=== PATIENT | female | born 1975 | race Caucasian/White ===

== ENCOUNTER 2022-10-05 10:00 | Emergency (ER) | payer OTHER, SELFPAY ==
[2022-10-05 10:03] VITALS: BP 120/83; PULSE 81; RESP 16; TEMP 36.3; O2SAT 100; BMI 20.1
--- NOTE | 2022-10-05 12:34 | ED.GENADULT ---
HPI - General Adult General Date Seen: 10/05/22 Chief complaint: Eye Problems Stated complaint: Facial injury/by dog Time Seen by Provider: 10/05/22 11:06 Source: patient Mode of arrival: ambulatory Limitations: no limitations History of Present Illness HPI narrative: Patient is a very nice 47-year-old female presents here for evaluation after she was bumped by her dog 3 days ago just below the right eye she woke up this morning with the swelling there, called the clinic and they recommended that she get seen she is having no problems seeing, there is no diplopia, she denies any nausea vomiting or any other signs of head injury. The dog was small and managed at [facility] also cross the know she has had a little bit of bleeding initially but none since he is able to breathe out of both sides of her nose normally. Associated symptoms: denies other symptoms Treatments prior to arrival: none Related Data Home Medications Medication Instructions Recorded Confirmed celecoxib 200 mg capsule (Celebrex) 200 mg PO BID 10/05/22 10/05/22 rituximab 10 mg/mL IV 10/05/22 concentrate,intravenous (Rituxan) Allergies Allergy/AdvReac Type Severity Reaction Status Date / Time No Known Drug Allergies Allergy Verified 10/05/22 10:07 Review of Systems Status of ROS: Reports: 10 or more systems reviewed and unremarkable except as noted in History and below [facility] Social History Smoking Status: Never smoker Do you use any of these nicotine containing products: None Second hand tobacco smoke exposure: No How often do you have a drink containing alcohol: never How often do you have six or more drinks on one occasion: Never AUDIT-C Alcohol total score: 0 Non-prescribed substance use: denies use service: No Exam Narrative: Exam Narrative: Patient is no apparent distress very pleasant, her pupils are equal round reactive to light she tracks normally with absence of nystagmus, little bit of swelling below her right eye just below her right lead overlying the maxillary bone, I cannot feel a specific area of bony soreness although I suspected underneath this is a small little hematoma. TMs are normal bilaterally, her neck is supple there is full range of motion she has a small little abrasion/very small 2 mm laceration across the bridge of her nose, when she plug her nose there is no air the comes out of air nasal bones are straight, there is no septal hematoma on viewing this her mouth opening is normal, no midfacial tenderness, her jaw tracks normally, there is no lymphadenopathy anterior posterior chains. Const: Vital Signs, click to edit/add: Vital Signs - 24 hr 10/05/22 10:03 Temperature 97.3 F L Pulse Rate [Left P ulse Oximeter] 81 Respiratory Rate 16 Blood Pressure [Le ft Upper Arm] 120/83 Pulse Oximetry 100 Oxygen Delivery Me thod Room Air Course Vital Signs Vital signs: Initial Vital Signs Temperature 97.3 F L 10/05/22 10:03 Temperature Source Temporal Artery Scan 10/05/22 10:03 Pulse Rate 81 10/05/22 10:03 Pulse Rhythm 10/05/22 10:03 Pulse Strength 3+ Normal 10/05/22 10:03 Respiratory Rate 16 10/05/22 10:03 Blood Pressure 120/83 10/05/22 10:03 Blood Pressure Mean 95 10/05/22 10:03 Blood Pressure Position Sitting 10/05/22 10:03 Pulse Oximetry 100 10/05/22 10:03 Oxygen Delivery Method 10/05/22 10:03 Vital Signs Temperature 97.3 F L 10/05/22 10:03 Pulse Rate 81 10/05/22 10:03 Respiratory Rate 16 10/05/22 10:03 Blood Pressure 120/83 10/05/22 10:03 Pulse Oximetry 100 10/05/22 10:03 Oxygen Delivery Method 10/05/22 10:03 Temperature 97.3 F L 10/05/22 10:03 Pulse Rate 81 10/05/22 10:03 Respiratory Rate 16 10/05/22 10:03 Blood Pressure 120/83 10/05/22 10:03 Pulse Oximetry 100 10/05/22 10:03 Oxygen Delivery Method 10/05/22 10:03 Medical Decision Making MDM Narrative Medical decision making narrative: I discussed with her that I think that this is just a small little hematoma, it is improved from the picture she showed me initially did water it is now, I would use some heat now as she did use ice for the 1st couple days, it might change colors, and then reaccumulate tomorrow in the morning when she wakes up, but it will improve, it is really unlikely to have any sort of bony abnormality although doing this treatment would be the best I would recommend over her brace romo to put a little bacitracin and follow up if any signs of infection her ongoing issues. She was comfortable with this. Discharge Plan Discharge Clinical Impression: Hematoma and contusion Patient Disposition: Home, Self-Care Condition: Stable Instructions: Bone Bruise (ED) Additional Instructions: Home rest at this point I would use heat, over this area I think this is a small collection of fluid from his overlying hematoma. It should improve over the next few days, sometimes you can have a little bump over the bone that can continue for a while but I would suspect that this will slowly improve, avoidance of rubbing this as is reactive tissue as this will cause more swelling, and you should notice in the morning that will be more swollen than as the day goes on. Please but some bacitracin on your nose, this will try to prevent infection. Prescriptions: No Action celecoxib [Celebrex] 200 mg capsule 200 mg PO BID Rituxan 10 mg/mL concentrate IV Follow Up/Referrals: Violetta Swann PA [Primary Care Provider] - Stand Alone Forms: [employer] Info Instructions
== END 2022-10-05 11:43 | disposition home or self-care (01) ==
LOC: ED 11:42
PROVIDERS: Emergency Provider Family Medicine; PCP Physician Assistant
DX: S00.11XA Contusion of right eyelid and periocular area, initial encounter (principal); W54.1XXA Struck by dog, initial encounter
CPT/HCPCS: 99282